=== PATIENT | female | born 1960 | race Caucasian/White ===

== ENCOUNTER → 2017-09-27 | Outpatient (REF) | payer BC ==
[2016-11-23 13:35] VITALS: BMI 35.8
[~2017-09-27] MED LIST: ALB18R INH; ALBU8.5H12 IH; ASCO-191 PO; CALC-1171 PO; CETI10CA8 PO; DAPA10TA PO; GLIP-152 PO; GLY5 PO; KET10 PO; LACT1CAP6 PO; LEVI SUBQ; LEVO-85 PO; LISI5TAB25 PO; LOR5/325 PO; MES400 PO; MESA1.2T2 PO; METXR500 PO; PAN40 PO; RANI-318 PO; SITA100T9 PO; SITA1TAB17 PO; VITA-131 PO; VITA1TAB8 PO
== END ==
LOC: ZZSENDIN 17:34
PROVIDERS: ATTEND Urology
DX: N39.0 Urinary tract infection, site not specified (principal)
CPT/HCPCS: 81001; 87088

== ENCOUNTER 2017-10-29 20:35 | Emergency (ER) | payer BC ==
[2016-11-23 13:35] VITALS: Ht 160 cm; Wt 97.5 kg
[~2017-10-29] VITALS: Ht 160 cm; Wt 97.5 kg
[2017-10-29] MEDS ORDERED: ANAPHYLAXIS KIT 1 EA ONE (20:41)
--- NOTE | 2017-10-29 20:52 | ER Report ---
History and Physical Time Seen By MD: 20:49 Hx. of Stated Complaint: patient has swelling, in her upper lip and reddness around lips and her hands, started around 1645, and she took benadryl, but it has not helped, patient also has itching. HPI/ROS CHIEF COMPLAINT: lip swelling, rash and itching HISTORY OF PRESENT ILLNESS: This is as 57 year old female. She had swelling of her upper lip that started this afternoon. Rash on her arms and trunk that is itchy. A little swelling in the left hand. No shortness of breath. No swelling of tongue or trouble swallowing. She was swimming at the [employer] earlier and ate dinner at [employer]. No unusual exposures that she is aware of. Has not had this happen in the past. Tried oral Benadryl, without relief. No chest pains. No nausea or vomiting. No recent illness. No trouble with bowel or bladder. REVIEW OF SYSTEMS: As above. Allergies: Coded Allergies: morphine (Verified Allergy, Intermediate, DECREASED HEART RATE, 10/29/17) sulfamethoxazole (Verified Allergy, Intermediate, REDNESS OF SKIN, AND HIGH FEVER, 10/29/17) trimethoprim (Verified Allergy, Intermediate, REDNESS OF SKIN, AND HIGH FEVER, 10/29/17) Uncoded Allergies: BANDAIDS (Adverse Reaction, Mild, REDNESS AND BRUISING, 11/29/12) Home Meds Active Scripts Prednisone (PREDNISONE) 20 Mg Tablet, 60 MG PO QDAY, #12 TAB 0 Refills Prov:GENARO VILLA MD 10/29/17 Reported Medications [prelief] No Conflict Check, 1 CAP PO QDAY 10/29/17 Diphenoxylate Hcl/Atropine (LOMOTIL TABLET) 1 Each Tablet, 1 EACH PO PRN, TAB 10/29/17 Loratadine (LORATADINE) 10 Mg Tablet, 10 MG PO QDAY 10/29/17 Pravastatin Sodium (PRAVACHOL) 20 Mg Tablet, 20 MG PO QDAY, TAB 10/29/17 Escitalopram Oxalate (ESCITALOPRAM OXALATE) 10 Mg Tablet, 10 MG PO QDAY, TAB 10/29/17 Sitagliptin Phos/Metformin Hcl (JANUMET 50-1,000 MG TABLET) 1 Each Tablet, 1 EACH PO BID 10/29/17 Lactobacillus Combination No.4 (PROBIOTIC) 1 Each Capsule, 1 TAB PO BID, CAPSULE 10/21/15 Glipizide (GLIPIZIDE) 5 Mg Tablet, 5 MG PO BID 10/21/15 Insulin Detemir (LEVEMIR) 100 Unit/Ml Injs, 55 UNITS SUBQ QDAY 10/21/15 Lisinopril (LISINOPRIL) 5 Mg Tablet, 5 MG PO QDAY, TAB 10/21/15 Ranitidine Hcl (RANITIDINE HCL) 150 Mg Tablet, 150 MG PO QDAY 10/21/15 Pantoprazole Sod (Protonix) 40 Mg Tabec, 40 MG PO QDAY 11/29/12 Discontinued Reported Medications Albuterol Sulfate (VENTOLIN HFA) 18 Gm Inh, 1-2 PUFF INH 3-4XD Y for WHEEZING, INH 11/16/16 Vitamin C/Biotin (Omoo-Pqrd-Vgiui Gummies) 50 Mg-1,250 Mcg Tab.chew, 3 CAP PO QDAY 11/16/16 Dapagliflozin Propanediol (Farxiga) 10 Mg Tablet, 1 TAB PO DAILY 10/21/15 Cetirizine Hcl (ZYRTEC) 10 Mg Capsule, 10 MG PO QDAY, CAPSULE 10/21/15 Discontinued Scripts Hydrocodone Bit/Acetaminophen (HYDROCODON-ACETAMINOPHEN 5-325) 1 Each Tablet, 1 EACH PO Q4-6H Y for PAIN, #30 TAB Prov:LESTER ASHLEY MD 11/28/16 Levofloxacin 500 Mg Tab (LEVAQUIN 500 MG TAB) 500 Mg Tablet, 750 MG PO QDAY, #6 TAB Prov:LESTER ASHLEY MD 11/28/16 Past Medical/Surgical History Asthma, hypertension, hyperlipidemia, arthritis, insulin-dependent diabetes, Crohn's disease, history of cluster headaches. Surgeries include ventral hernia repair, appendectomy, colectomy, bilateral knee scopes, sinus surgery Reviewed Nurses Notes: Yes Hx Smoking: Yes (2 PPD X 20 YEARS quit 2012) Smoking Status: Former Smoker Hx Substance Use Disorder: No (FOR NAUSEA) Hx Alcohol Use: Yes Constitutional Vital Sign - Last 24 Hours 10/29/17 10/29/17 10/29/17 10/29/17 20:43 20:50 21:05 21:20 Temp 97.8 Pulse 77 69 69 79 Resp 24 B/P (MAP) 155/82 Pulse Ox 92 91 90 93 3/12/1310/29/17 10/29/17 10/29/17 21:35 21:40 21:55 22:00 Pulse 63 65 69 67 Pulse Ox 92 92 88 91 10/29/17 10/29/17 10/29/17 10/29/17 22:05 22:10 22:15 22:20 Pulse 69 66 65 75 Pulse Ox 89 89 90 88 10/29/17 10/29/17 10/29/17 10/29/17 22:25 22:30 22:35 22:42 Pulse 71 76 71 85 Resp 16 B/P (MAP) 155/82 (106) 118/72 (87) Pulse Ox 87 89 91 95 O2 Delivery Room Air 10/29/17 22:43 B/P (MAP) 117/50 (72) Intake and Output 10/29/17 10/29/17 10/30/17 15:00 23:00 07:00 Intake Total 1050 ml Balance 1050 ml Physical Exam General Appearance: The patient is alert, has no immediate need for airway protection and no current signs of toxicity. Eyes: Pupils equal and round no injection. ENT: Angioedema of the upper lip. No swelling of the tongue. Normal oral mucosa. Moist mucous membranes. Normal posterior oropharynx. Neck: Neck is supple and non tender. Respiratory: Chest is non tender, lungs are clear to auscultation. Cardiac: regular rate and rhythm Skin: Red urticarial rash on back, stomach and arms. Some swelling on the left hand over the thumb. DIFFERENTIAL DIAGNOSIS: After history and physical exam differential diagnosis was considered for rash and angioedema that appears like an allergic reaction. No distress and no need for epinephrine at this time but will watch closely. Nursing has an IV in place and will begin a liter of NS, Benadryl 50mg IV, Pepcid 20mg IV, and 125mg of SoluMedrol IV. Medical Decision Making ED Course/Re-evaluation Clinical Indication for ER IV: IV Access ED Course The patient was given the SoluMedrol, Bendaryl and Pepcid IV along with a liter of normal saline. Her itching is mostly gone. The rash on arms is improving as well. Swelling on the upper lip is much reduced, but not completely. Watched for 2 hours in the ER with improvement. Gave Prednisone 60mg oral dose in the ER and will continue for the next 4 days along with the Benadryl and Pepcid. Decision to Disposition Date: Oct 29, 2017 Decision to Disposition Time: 22:33 Depart Departure Latest Vital Signs Vital Signs Date Time Temp Pulse Resp B/P (MAP) Pulse Ox O2 Delivery O2 Flow Rate FiO2 10/29/17 22:43 117/50 (72) 10/29/17 22:42 85 16 95 Room Air 10/29/17 20:43 97.8 Impression: Primary Impression: Allergic reaction Condition: Improved Disposition: HOME OR SELF-CARE New Scripts Prednisone (PREDNISONE) 20 Mg Tablet 60 MG PO QDAY, #12 TAB 0 Refills Prov: GENARO VILLA MD 10/29/17 Patient Instructions: General Allergic Reaction (ED) Additional Instructions: Take Prednisone 20mg tablets, 3 tablets once a day for 4 more days starting in the morning. Take Benadryl 25mg tablets 2 tablets every 6 hours as needed for itching and rash. Take Pepcid 20mg over the counter tablets, one tablet twice a day for the next 4 days. Follow-up with your regular doctor. Return to the ER for worsening symptoms such as lip, tongue or mouth swelling or difficulty swallowing or breathing. Problem Qualifiers Primary Impression: Allergic reaction Encounter type: initial encounter Qualified Codes: T78.40XA - Allergy, unspecified, initial encounter GENARO VILLA MD Oct 29, 2017 20:52
[2017-10-29] MEDS ORDERED: NS(*) 0.9% 1000 ML BAG 1,000 ML IV ONE (20:55)
[2017-10-29] MEDS ORDERED: diphenhydrAMINE 50 MG/ML VIAL IVP ONE (20:55)
[2017-10-29] MEDS ORDERED: methylPREDNIS SUCC 125 MG/2ML IVP ONE (20:55)
[2017-10-29] MEDS ORDERED: FAMOTIDINE(*) 20MG/50ML PREMIX 50 ML IVPB ONE (20:55)
[2017-10-29] MEDS ORDERED: ESCI10TA8 PO (21:45)
[2017-10-29] MEDS ORDERED: SITA1TAB17 PO (21:45)
[2017-10-29] MEDS ORDERED: PRAV20TA65 PO (21:45)
[2017-10-29] MEDS ORDERED: DIPH-1 PO (21:45)
[2017-10-29] MEDS ORDERED: LORA-629 PO (21:45)
[2017-10-29] MEDS ORDERED: prelief PO (21:46)
[2017-10-29] MEDS ORDERED: PRED20TA6 PO (22:34)
[2017-10-29] MEDS ORDERED: predniSONE 20 MG TAB PO ONE (22:35)
[2017-10-29 22:43] VITALS: BP 117/50
== END 2017-10-29 22:47 | disposition home or self-care (01) ==
LOC: ER 20:51
DX: T78.40XA Allergy, unspecified, initial encounter (principal)
CPT/HCPCS: 96361; 96365; 96375; 99284; J1200; J2930; J3490; J7030; J7512

== ENCOUNTER → 2017-11-16 | Outpatient (CLI) | payer BC ==
[2016-11-23 13:35] VITALS: BMI 35.8
[~2017-11-16] MED LIST changes: +DIPH-1 PO; +ESCI10TA8 PO; +LORA-629 PO; +PRAV20TA65 PO; +PRED20TA6 PO; +prelief PO
== END ==
LOC: LAB 14:15
PROVIDERS: ATTEND Urology
DX: Z01.812 Encounter for preprocedural laboratory examination (principal); R35.0 Frequency of micturition; N39.0 Urinary tract infection, site not specified
CPT/HCPCS: 36415; 82565

== ENCOUNTER → 2018-07-17 | Outpatient (CLI) | payer BC ==
[2016-11-23 13:35] VITALS: BMI 35.8
[2018-07-17 14:01] LABS: PLATELET COUNT, AUTOMATED 358 K/uL (150-450)
== END ==
LOC: LAB 13:42
DX: K50.90 Crohn's disease, unspecified, without complications (principal)
CPT/HCPCS: 36415; 82040; 82247; 82310; 82374; 82435; 82565; 82947; 84075; 84132; 84155; 84295; 84450; 84460; 84520; 85025